=== PATIENT | male | born 2000 | race African-American/Black ===

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

== ENCOUNTER 2022-05-03 02:28 | Emergency (ER) | payer OTHER ==
[~2022-05-03] VITALS: Ht 157.5 cm; Wt 54.4 kg
[2022-05-03 02:55] LABS: PLATELET COUNT 271 K/uL (142-355)
[2022-05-03 02:58] LABS: POTASSIUM 4.1 mmol/L (3.6-5.2)
[2022-05-03 03:26] LABS: PARTIAL THROMBOPLASTIN TIME 27.6 SECONDS (24.5-33.6)
[2022-05-03 06:47] VITALS: TEMP 98.9
[2022-05-03 07:30] VITALS: BP 106/56
== END 2022-05-03 07:37 | disposition still patient (30) ==
LOC: ED 02:28
PROVIDERS: Family Medicine
DX: I47.1 Supraventricular tachycardia (principal); R07.89 Other chest pain; I10 Essential (primary) hypertension; R09.02 Hypoxemia; I95.9 Hypotension, unspecified; Z11.52 Encounter for screening for COVID-19
CPT/HCPCS: 36415; 80053; 80307; 81002; 82550; 84484; 85027; 85610; 85730; 87635; 93005; 96360; 96374; 96376; 99284; J0153; U0003

== ENCOUNTER 2022-08-22 22:01 | Emergency (ER) | payer OTHER ==
[~2022-08-22] VITALS: Ht 157.5 cm; Wt 68.0 kg
[2022-08-22 22:45] LABS: PLATELET COUNT 280 K/uL (142-355)
[2022-08-22 23:04] LABS: POTASSIUM 4.2 mmol/L (3.6-5.2)
[2022-08-22 23:33] LABS: PARTIAL THROMBOPLASTIN TIME 23.9 SECONDS (24.5-33.6)
[2022-08-22 23:40] VITALS: TEMP 98.2
[2022-08-23 03:15] VITALS: BP 86/44
== END 2022-08-23 03:30 | disposition short-term general hospital (02) ==
LOC: ED 22:01
PROVIDERS: Family Medicine
DX: I47.1 Supraventricular tachycardia (principal); I45.6 Pre-excitation syndrome; E86.0 Dehydration; Z91.14 Patient's other noncompliance with medication regimen
CPT/HCPCS: 36415; 80053; 80307; 81000; 82550; 84484; 85027; 85610; 85730; 93005; 96361; 96365; 96366; 96375; 96376; 99285; J0132; J0153; J3490